=== PATIENT | female | born 1950 | race Caucasian/White ===

== ENCOUNTER → 2024-06-15 14:45 | Outpatient (REF) | payer MEDICARE, OTHER, SELFPAY | LOC: HWRAD 14:45 | PROVIDERS: ATTENDING PHYSICIAN Obstetrics & Gynecology Gynecology; FAMILY PHYSICIAN Nurse Practitioner Adult Health | DX: R10.2 Pelvic and perineal pain (principal) | CPT/HCPCS: 76830; 76856 ==

== ENCOUNTER → 2024-06-16 10:47 | Outpatient (REF) | payer MEDICARE, OTHER, SELFPAY | LOC: WDC 10:47 | PROVIDERS: ATTENDING PHYSICIAN Nurse Practitioner Adult Health | DX: Z12.31 Encounter for screening mammogram for malignant neoplasm of breast (principal) | CPT/HCPCS: 77063; 77067 ==

== ENCOUNTER → 2024-08-17 09:43 | Outpatient (REF) | payer MEDICARE, OTHER, SELFPAY ==
[2024-08-17 12:35] LABS: Blood Urea Nitrogen 20 mg/dl (7-17); Calcium 10.4 mg/dl (8.4-10.2); Carbon Dioxide 27 mmol/L (22-30); Chloride 101 mmol/L (98-107); Glucose 116 mg/dl (70-99); Potassium 4.8 mmol/L (3.5-5.1); Sodium 140 mmol/L (135-145); eGFR > 60.00
== END ==
LOC: REG 09:43
PROVIDERS: ATTENDING PHYSICIAN Obstetrics & Gynecology; FAMILY PHYSICIAN Nurse Practitioner Adult Health
DX: Z01.818 Encounter for other preprocedural examination (principal)
CPT/HCPCS: 36415; 80048

== ENCOUNTER → 2024-08-19 10:18 | Outpatient (REF) | payer MEDICARE, OTHER, SELFPAY | LOC: HWRAD 10:18 | PROVIDERS: ATTENDING PHYSICIAN Obstetrics & Gynecology; FAMILY PHYSICIAN Nurse Practitioner Adult Health | DX: R10.2 Pelvic and perineal pain (principal); R10.9 Unspecified abdominal pain | CPT/HCPCS: 74177; Q9967 ==

== ENCOUNTER → 2024-09-01 08:36 | Outpatient (REF) | payer MEDICARE, OTHER, SELFPAY ==
[2024-09-01 09:11] LABS: % Basophils 0.7 % (0-2); % Eosinophils 1.4 % (0-6); % Immature Granulocytes 0.2 % (0-0.5); % Lymphocytes 20.4 % (20.5-51.1); % Monocytes 6.4 % (1.7-9.3); % Neutrophils 70.9 % (42.2-75.2); Absolute Eosinophils 0.1 10^3/uL (0-0.7); Absolute Lymphocytes 1.2 10^3/uL (1.2-3.4); Absolute Monocytes 0.4 10^3/uL (0.1-0.6); Absolute Neutrophils 4.1 10^3/uL (1.4-6.5); Hemoglobin 14.2 g/dL (12.0-16.0); Mean Corp Hgb Conc. 34.6 g/dL (33.0-37.0); Mean Corpuscular Hgb 30.1 pg (27.0-31.0); Mean Corpuscular Volume 86.9 fL (81.0-99.0); Mean Platelet Volume 9.4 fL (7.4-10.4); Nucleated Red Blood Cells % 0 %; Platelet Count 261 10^3/uL (130-400); Red Blood Cell Count 4.72 10^6/uL (4.20-5.40); White Blood Cell Count 5.8 10^3/uL (4.8-10.8)
[2024-09-01 09:45] LABS: ALT (SGPT) 59 U/L (0-35); AST (SGOT) 38 U/L (14-36); Albumin 4.7 g/dl (3.5-5.0); Alkaline Phosphatase 71 U/L (38-126); Blood Urea Nitrogen 20 mg/dl (7-17); Calcium 10.1 mg/dl (8.4-10.2); Carbon Dioxide 29 mmol/L (22-30); Glucose 115 mg/dl (70-99); HDL Cholesterol 97 mg/dl; LDL Cholesterol, Calculated 57 mg/dl; Potassium 5.3 mmol/L (3.5-5.1); Sodium 144 mmol/L (135-145); Total Bilirubin 0.7 mg/dl (0.2-1.3); Total Cholesterol 179 mg/dl (50-199); Total Protein 7.5 g/dl (6.3-8.2); Triglyceride 128 mg/dl (10-149); Very Low Density Lipoprotein 25 mg/dl (0-30); eGFR > 60.00
[2024-09-01 10:15] LABS: Glycohemoglobin (HgbA1c) 5.6 % (4.0-5.6)
[2024-09-01 10:18] LABS: TSH Reflex To Free T4 1.32 uIU/ml (0.47-4.68)
[2024-09-01 10:32] LABS: Chloride 102 mmol/L (98-107)
== END ==
LOC: REG 08:36
PROVIDERS: ATTENDING PHYSICIAN Nurse Practitioner Adult Health
DX: R73.03 Prediabetes (principal); I10 Essential (primary) hypertension; Z79.899 Other long term (current) drug therapy; Z13.29 Encounter for screening for other suspected endocrine disorder
CPT/HCPCS: 36415; 80053; 80061; 83036; 84443; 85025

== ENCOUNTER → 2024-09-21 09:18 | Outpatient (REF) | payer MEDICARE, OTHER, SELFPAY ==
[2024-09-21 10:46] LABS: Blood Urea Nitrogen 17 mg/dl (7-17); Calcium 10.1 mg/dl (8.4-10.2); Carbon Dioxide 30 mmol/L (22-30); Chloride 102 mmol/L (98-107); Glucose 109 mg/dl (70-99); Potassium 4.9 mmol/L (3.5-5.1); Sodium 143 mmol/L (135-145); eGFR > 60.00
== END ==
LOC: REG 09:18
PROVIDERS: ATTENDING PHYSICIAN Nurse Practitioner Adult Health
DX: Z00.00 Encounter for general adult medical examination without abnormal findings (principal); E87.5 Hyperkalemia
CPT/HCPCS: 36415; 80048

== ENCOUNTER → 2024-10-13 12:37 | Outpatient (REF) | payer MEDICARE, OTHER, SELFPAY | LOC: HWRAD 12:37 | PROVIDERS: ATTENDING PHYSICIAN Obstetrics & Gynecology; FAMILY PHYSICIAN Nurse Practitioner Adult Health | DX: R10.2 Pelvic and perineal pain (principal) | CPT/HCPCS: 76830; 76856 ==

== ENCOUNTER → 2025-01-05 15:15 | Outpatient (REF) | payer MEDICARE, OTHER, SELFPAY | LOC: HWRCS 15:15 | PROVIDERS: ATTENDING PHYSICIAN Nurse Practitioner Adult Health | DX: I35.0 Nonrheumatic aortic (valve) stenosis (principal) | CPT/HCPCS: 93306 ==

== ENCOUNTER → 2025-02-08 06:56 | Outpatient (REF) | payer MEDICARE, OTHER, SELFPAY | LOC: SDSPAT 06:56 | PROVIDERS: ATTENDING PHYSICIAN Obstetrics & Gynecology; FAMILY PHYSICIAN Nurse Practitioner Adult Health; REFERRING PHYSICIAN Internal Medicine Cardiovascular Disease | DX: D25.9 Leiomyoma of uterus, unspecified (principal) | CPT/HCPCS: 36415; 86850; 86900; 86901; 93005 ==

== ENCOUNTER 2025-02-22 06:25 | Day surgery (SDC) | payer MEDICARE, OTHER, SELFPAY ==
--- NOTE | 2025-02-08 15:43 | PTCARENOTE ---
Patients 4/8 ECG abnormal- reviewed by Dr. Cole- no additional interventions required
[2025-02-09 13:52] VITALS: BMI 35.6
[2025-02-22] VITALS (14 sets, daily range): BP systolic 90–127; BP diastolic 44–70; BMI 35.6
[2025-02-22] MEDS: Pyridium 200 MG PO (09:39)
[2025-02-22] MEDS: EMEND 40 MG PO (09:39)
[2025-02-22] MEDS: NORMOSOL-R/PLASMALYTE-A 1000 IV (09:41)
[2025-02-22] MEDS: TRANSDERM-SCOP 1 PATCH TRANSDERM (09:51)
[2025-02-22] MEDS: HEPARIN 5000 UNITS SC (10:34)
[2025-02-22] MEDS: ZOFRAN 4 MG IV (13:58)
[2025-02-22] MEDS: DILAUDID 0.5 MG IV ×2 (13:59→14:13)
[2025-02-22] MEDS: TYLENOL 650 MG PO (15:54)
== END 2025-02-22 19:45 | disposition home or self-care (01) ==
LOC: SDS 06:25
PROVIDERS: ATTENDING PHYSICIAN Obstetrics & Gynecology
DX: D25.9 Leiomyoma of uterus, unspecified (principal); G89.29 Other chronic pain; R10.2 Pelvic and perineal pain; N99.71 Accidental puncture and laceration of a genitourinary system organ or structure during a genitourinary system procedure; Y83.8 Other surgical procedures as the cause of abnormal reaction of the patient, or of later complication, without mention of misadventure at the time of the procedure; N84.0 Polyp of corpus uteri; N80.03 Adenomyosis of the uterus; N83.8 Other noninflammatory disorders of ovary, fallopian tube and broad ligament
CPT/HCPCS: 58571; 57200; 88305; J1580

== ENCOUNTER → 2025-06-20 10:43 | Outpatient (REF) | payer MEDICARE, OTHER, SELFPAY | LOC: WDC 10:43 | PROVIDERS: ATTENDING PHYSICIAN Nurse Practitioner Adult Health | DX: Z12.31 Encounter for screening mammogram for malignant neoplasm of breast (principal) | CPT/HCPCS: 77063; 77067 ==